=== PATIENT | male | born 1990 | race Caucasian/White ===

== ENCOUNTER 2018-02-10 21:14 | Emergency (ER) | payer BC, OTHER ==
[2018-02-10 21:18] VITALS: BP 142/87; PULSE 99; RESP 18; TEMP 97.7
[2018-02-10] MEDS ORDERED: ORPHENADRINE 30 MG/ML 2 ML VIAL IM STA (21:44)
[2018-02-10] MEDS ORDERED: KETOROLAC 30 MG/ML 1 ML VIAL IM STA (21:44)
--- NOTE | 2018-02-10 22:05 | ED ---
Back Pain HPI - General Chief Complaint: Back Pain/Injury Stated Complaint: back pain Time Seen by Provider: 02/10/18 21:37 Source: patient, RN notes reviewed Limitations: no limitations - History of Present Illness Initial Comments: This is a 27-year-old who presents to the emergency department with chief complaint of low back pain. Patient states that he was helping his mom clean out her basement earlier this afternoon. He states that his back started to feel irritated. He does report a history of degenerative disc disease. He states that he went home, took Flexeril at about 6:30 PM and could not sleep due to his low back pain. He denies any falls or specific injuries. He reports pain to the midline low back into the right side of his back. Denies any saddle paresthesias or loss of bladder or bowel function. He denies any numbness or tingling or shooting of pain down the legs. Denies recent fevers or chills, chest pain or shortness of breath, abdominal pain, nausea or vomiting. - Related Data Home Medications Medication Instructions Recorded Confirmed Cyanocobalamin [Vitamin B-12] 500 mcg PO DAILY 02/18/16 02/10/18 Cyclobenzaprine [Flexeril] 10 mg PO DAILY PRN 02/10/18 02/10/18 Dextroamphetamine/Amphetamine 20 mg PO BID 02/10/18 02/10/18 [Adderall] Previous Rx's Medication Instructions Recorded Ibuprofen 600 mg PO Q6HR #20 tablet 02/10/18 Allergies Allergy/AdvReac Type Severity Reaction Status Date / Time No Known Allergies Allergy Verified 02/10/18 21:27 Review of Systems ROS Statement: Those systems with pertinent positive or pertinent negative responses have been documented in the HPI. ROS Other: All systems not noted in ROS Statement are negative. Past Medical History Past Medical History: Chest Pain / Angina Additional Past Medical History / Comment(s): BACK PAIN History of Any Multi-Drug Resistant Organisms: None Reported Past Surgical History: No Surgical Hx Reported Additional Past Surgical History / Comment(s): colonoscopy, foreign body removal from foot Past Psychological History: No Psychological Hx Reported Smoking Status: Current every day smoker Past Alcohol Use History: Occasional Past Drug Use History: None Reported - Past Family History Father Family Medical History: COPD General Exam - General Exam Comments Initial Comments: General: Awake and alert, well-developed; in no apparent distress. HEENT: Head atraumatic, normocephalic. Pupils are equal, round and reactive to light. Extraocular movements intact. Oropharynx moist without erythema or exudate. Neck: Supple. Normal ROM. Cardiovascular: Regular rate and rhythm. No murmurs, rubs or gallops. Chest symmetrical. Respiratory: Lungs clear to auscultation bilaterally. No wheezes, rales or rhonchi. Normal respiratory effort with no use of accessory muscles. Musculoskeletal: Normal ROM, no tenderness bilateral upper and lower extremities. Skin: [place], warm and dry without rashes or lesions. Neurological: Alert and oriented x3. CN II-XII grossly intact. Speech is fluent and answers are appropriate. No focal neuro deficits. Psychiatric: Normal mood and affect. No overt signs of depression or anxiety noted. Limitations: no limitations Back exam: Present: normal inspection, full ROM, paraspinal tenderness (right lumbar), vertebral tenderness (lumbar) Course Vital Signs 02/10/18 21:16 Temperature 97.7 F Pulse Rate 99 Respiratory 18 Rate Blood Pressure 142/87 O2 Sat by Pulse 97 Oximetry Medical Decision Making - Medical Decision Making This is a 27-year-old male who presents to the emergency department with chief complaint of low back pain. Patient reports a history of degenerative disc disease. He states he was helping his mom clean out her basement earlier this afternoon and has since had progressive worsening of low back pain. There is tenderness of the lumbar vertebra and right lumbar paraspinal muscles. Patient denies any falls, specific injuries or trauma. He is neurovascularly intact. Denies saddle paresthesias or loss of bladder or bowel function. Denies abdominal pain. Patient given Toradol and Norflex while in the emergency department. Patient will be written a prescription for ibuprofen. Recommended continuing Flexeril. Recommended following up with primary care provider. Patient is in agreement with plan and voices understanding. All questions were answered. Vital signs are stable and patient is in no acute distress. Disposition Clinical Impression: Strain of lumbar region Disposition: HOME SELF-CARE Condition: Good Instructions: Acute Low Back Pain (ED), Low Back Strain (ED) Additional Instructions: Please take medications as prescribed. Please follow up with primary care provider within 1-2 days. Return to emergency department if symptoms should worsen or any concerns arise. Prescriptions: Ibuprofen 600 mg PO Q6HR #20 tablet Is patient prescribed a controlled substance at d/c from ED?: No Referrals: Raleigh Romano DO [Primary Care Provider] - 1-2 days Time of Disposition: 22:06
== END 2018-02-10 22:12 | disposition home or self-care (01) ==
LOC: EC 21:14
DX: S39.012A Strain of muscle, fascia and tendon of lower back, initial encounter (principal); F17.200 Nicotine dependence, unspecified, uncomplicated; Z79.899 Other long term (current) drug therapy; Z87.39 Personal history of other diseases of the musculoskeletal system and connective tissue; X50.9XXA Other and unspecified overexertion or strenuous movements or postures, initial encounter
CPT/HCPCS: 99283; 96372 ×2; J2360; J1885

== ENCOUNTER 2021-05-29 10:37 | Emergency (ER) | payer BC ==
[2021-05-29] MEDS ORDERED: BAMLANIVIMAB (EUA) 700 MG, ETESEVIMAB (EUA) 1,400 MG in SODIUM CHLORIDE 0.9% 50 ML IVPB ONE (11:15)
[2021-05-29] MEDS ORDERED: SODIUM CHLORIDE 0.9% 50 ML IVPB ONE (11:15)
--- NOTE | 2021-05-29 11:47 | ED ---
General Adult HPI - General Chief complaint: Upper Respiratory Infection Stated complaint: Covid+/BAM Time Seen by Provider: 05/29/21 11:40 Source: patient Mode of arrival: ambulatory Limitations: no limitations - History of Present Illness Initial comments: Well-appearing 31-year-old male presents to the emergency room with complaints of a runny nose and sore throat that started last night. Patient states that he went to urgent care and tested positive for coronavirus. He has not been vaccinated. He denies any chest pain, difficulty in breathing, shortness of breath. He has a history of ADHD and takes Adderall no other medications on a daily basis. No other medical history. He did provide a copy of his positive coronavirus test from the [facility] urgent care with him. -: days(s) (1) Severity scale (1-10): 0 Consistency: now resolved Improves with: none Worsens with: none Associated Symptoms: cough, other (sore throat, runny nose) - Related Data Home Medications Medication Instructions Recorded Confirmed Cyanocobalamin [Vitamin B-12] 500 mcg PO DAILY 02/18/16 02/10/18 Cyclobenzaprine [Flexeril] 10 mg PO DAILY PRN 02/10/18 02/10/18 Dextroamphetamine/Amphetamine 20 mg PO BID 02/10/18 02/10/18 [Adderall] Previous Rx's Medication Instructions Recorded Ibuprofen 600 mg PO Q6HR #20 tablet 02/10/18 Allergies Allergy/AdvReac Type Severity Reaction Status Date / Time No Known Allergies Allergy Verified 05/29/21 10:52 Review of Systems ROS Statement: Those systems with pertinent positive or pertinent negative responses have been documented in the HPI. ROS Other: All systems not noted in ROS Statement are negative. Past Medical History Past Medical History: Chest Pain / Angina Additional Past Medical History / Comment(s): BACK PAIN History of Any Multi-Drug Resistant Organisms: None Reported Past Surgical History: No Surgical Hx Reported Additional Past Surgical History / Comment(s): colonoscopy, foreign body removal from foot Past Psychological History: No Psychological Hx Reported Past Alcohol Use History: Occasional Past Drug Use History: None Reported - Past Family History Father Family Medical History: COPD General Exam Limitations: no limitations General appearance: alert, in no apparent distress Head exam: Present: atraumatic, normocephalic, normal inspection Eye exam: Present: normal appearance, EOMI ENT exam: Present: normal exam, normal oropharynx, mucous membranes moist Neck exam: Present: normal inspection, full ROM. Absent: tenderness, meningismus, lymphadenopathy Respiratory exam: Present: normal lung sounds bilaterally. Absent: respiratory distress, wheezes, rales, rhonchi, stridor Cardiovascular Exam: Present: regular rate, normal rhythm, normal heart sounds. Absent: systolic murmur, diastolic murmur, rubs, gallop, clicks GI/Abdominal exam: Present: soft, normal bowel sounds. Absent: distended, tenderness, guarding, rebound, rigid Back exam: Present: normal inspection. Absent: rash noted Neurological exam: Present: alert, oriented X3 Psychiatric exam: Present: normal affect, normal mood Skin exam: Present: warm, dry, intact, normal color. Absent: rash, cyanosis, diaphoretic, petechiae, pallor Course Vital Signs 05/29/21 05/29/21 05/29/21 10:47 12:16 13:33 Temperature 98.8 F 98.2 F Pulse Rate 94 79 75 Respiratory 19 20 18 Rate Blood Pressure 137/91 160/78 115/85 O2 Sat by Pulse 99 98 98 Oximetry Medical Decision Making - Medical Decision Making Well-appearing 31-year-old male presents to the emergency room with complaints of a runny nose and sore throat that started last night. Diagnosed at urgent care with coronavirus. He has not been vaccinated. His lung sounds are clear to auscultation his oxygen saturation is 99% room air. He has no respiratory distress, vital signs are stable. Patient was agreeable to receiving monoclonal antibody infusion and tolerated the infusion well. He was discharged home to return to the emergency room with any new or worsening symptoms. Self quarantine for 10 days from symptom onset, take vitamin D, vitamin C and zinc for immune health. Case discussed with Dr. Dover Disposition Clinical Impression: COVID-19 Disposition: HOME SELF-CARE Instructions (If sedation given, give patient instructions): Coronavirus Disease 2019 (COVID-19) Additional Instructions: Self quarantine for 10 days from symptom onset and 24 hours without a fever. Take vitamin C, vitamin D and zinc to improve immune health. Increase your fluid intake. Return to the emergency room with any new or worsening symptoms. Is patient prescribed a controlled substance at d/c from ED?: No Referrals: Raleigh Romano DO [Primary Care Provider] - 1-2 days
[2021-05-29 12:19] VITALS: TEMP 98.2
[2021-05-29 13:34] VITALS: BP 115/85; PULSE 75; RESP 18
== END 2021-05-29 13:34 | disposition home or self-care (01) ==
LOC: EC 10:37
DX: U07.1 COVID-19 (principal); Z72.89 Other problems related to lifestyle
CPT/HCPCS: 99283; J3490

== ENCOUNTER 2021-09-26 21:33 | Emergency (ER) | payer OTHER, BC ==
[2021-09-26 21:45] VITALS: TEMP 97.8
--- NOTE | 2021-09-26 22:11 | XR ---
EXAMINATION TYPE: XR scapula RT DATE OF EXAM: 09/26/2021 COMPARISON: NONE HISTORY: Pain TECHNIQUE: 2 views FINDINGS: There is no evidence of fracture nor dislocation. Glenohumeral joint is intact. Scapula is intact. IMPRESSION: Negative right scapula exam.
--- NOTE | 2021-09-26 22:14 | XR ---
EXAMINATION TYPE: XR shoulder complete RT DATE OF EXAM: 09/26/2021 COMPARISON: NONE HISTORY: Pain TECHNIQUE: 3 views FINDINGS: There is no sign of fracture nor dislocation. Joint spaces are normal. There are no patholo gic calcifications. IMPRESSION: Negative right shoulder exam.
[2021-09-27] MEDS ORDERED: IBUPROFEN 600 MG TAB PO STA (00:25)
[2021-09-27] MEDS ORDERED: ACETAMINOPHEN TAB 500 MG TAB PO STA (00:26)
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
[2021-09-27 01:04] VITALS: BP 122/76; PULSE 78; RESP 16
== END 2021-09-27 01:04 | disposition home or self-care (01) ==
LOC: EC 21:33
DX: S46.911A Strain of unspecified muscle, fascia and tendon at shoulder and upper arm level, right arm, initial encounter (principal); Y04.0XXA Assault by unarmed brawl or fight, initial encounter
CPT/HCPCS: 99283

== ENCOUNTER 2022-03-24 19:39 | Emergency (ER) | payer BC, OTHER ==
[2022-03-24 19:57] VITALS: BP 157/100; PULSE 85; RESP 18; TEMP 98.2
[2022-03-24] MEDS ORDERED: KETOROLAC 15 MG/ML 1 ML VIAL IVP STA (20:25)
[2022-03-24] MEDS ORDERED: SODIUM CHLORIDE 0.9% 1,000 ML IV ONE (20:26)
--- NOTE | 2022-03-24 20:30 | ED ---
Extremity Problem HPI - General Chief complaint: Extremity Problem,Nontraumatic Stated complaint: Leg Pain Time Seen by Provider: 03/24/22 20:13 Source: patient, RN notes reviewed Mode of arrival: ambulatory Limitations: no limitations - History of Present Illness Initial comments: This is a pleasant 32-year-old female who presents to emergency complaint 2 days of abdominal pain. Patient states it seemed to start more generalized yesterday and now is located in the right lower quadrant and left right flank area. Pain is exacerbated by movement, coughing, palpation, patient states it does radiate to the right CVA area. Patient had mild diarrhea yesterday. She also had some nausea. No fever. No hematuria. Patient's appetite has been diminished. No headache, no fever or chills, no changes in vision or hearing, no sore throat or difficulty with speech, no neck pain, no chest pain or shortness of breath, no changes in urination or bowel movements, no numbness or tingling, no extremity pain, no skin rashes or lesions. Past medical, surgical, social, and family history reviewed. MD Complaint: extremity pain - Related Data Home Medications Medication Instructions Recorded Confirmed Cyanocobalamin [Vitamin B-12] 500 mcg PO DAILY 02/18/16 02/10/18 Cyclobenzaprine [Flexeril] 10 mg PO DAILY PRN 02/10/18 02/10/18 Dextroamphetamine/Amphetamine 20 mg PO BID 02/10/18 02/10/18 [Adderall] Previous Rx's Medication Instructions Recorded Ibuprofen 600 mg PO Q6HR #20 tablet 02/10/18 Acetaminophen [Tylenol] 500 mg PO Q4-6H PRN #24 tab 09/27/21 Ibuprofen [Motrin] 600 mg PO Q8HR PRN #30 tab 09/27/21 Acetaminophen Tab [Tylenol Tab] 500 mg PO Q6H PRN #24 tablet 03/24/22 Cyclobenzaprine [Flexeril] 10 mg PO TID PRN #20 tab 03/24/22 Ibuprofen [Motrin] 600 mg PO Q8HR PRN #30 tab 03/24/22 Allergies Allergy/AdvReac Type Severity Reaction Status Date / Time No Known Allergies Allergy Verified 03/24/22 19:57 Review of Systems ROS Statement: Those systems with pertinent positive or pertinent negative responses have been documented in the HPI. ROS Other: All systems not noted in ROS Statement are negative. Past Medical History Past Medical History: Chest Pain / Angina Additional Past Medical History / Comment(s): BACK PAIN History of Any Multi-Drug Resistant Organisms: None Reported Past Surgical History: No Surgical Hx Reported Additional Past Surgical History / Comment(s): colonoscopy, foreign body removal from foot Past Psychological History: No Psychological Hx Reported Smoking Status: Never smoker Past Alcohol Use History: Occasional Past Drug Use History: None Reported - Past Family History Father Family Medical History: COPD General Exam Limitations: no limitations General appearance: alert, in no apparent distress Head exam: Present: atraumatic, normocephalic, normal inspection Eye exam: Present: normal appearance, PERRL, EOMI. Absent: scleral icterus, conjunctival injection, periorbital swelling ENT exam: Present: normal exam, mucous membranes moist Neck exam: Present: normal inspection. Absent: tenderness, meningismus, lymphadenopathy Respiratory exam: Present: normal lung sounds bilaterally. Absent: respiratory distress, wheezes, rales, rhonchi, stridor Cardiovascular Exam: Present: regular rate, normal rhythm, normal heart sounds. Absent: systolic murmur, diastolic murmur, rubs, gallop, clicks GI/Abdominal exam: Present: soft, normal bowel sounds. Absent: distended, tenderness, guarding, rebound, rigid Extremities exam: Present: normal inspection, full ROM, normal capillary refill, calf tenderness (Patient has mild tenderness to the left calf on deep palpation.), other (Full range of motion. Full muscle strength. No evidence of infectious or vascular insult. Pulses are 2+ in 4 regards to popliteal, dorsalis pedis, and posterior tibial. Capillary refill less than 2 seconds. No calor. No pallor. Sensation intact.). Absent: tenderness, pedal edema, joint swelling Back exam: Present: normal inspection, full ROM. Absent: tenderness, rash noted Neurological exam: Present: alert, oriented X3, CN II-XII intact, normal gait, reflexes normal, other (Patient may in fact have hyperesthesia with pinprick to the left calf area.). Absent: abnormal gait, motor sensory deficit Psychiatric exam: Present: normal affect, normal mood Skin exam: Present: warm, dry, intact, normal color. Absent: rash Course Vital Signs 03/24/22 19:52 Temperature 98.2 F Pulse Rate 85 Respiratory 18 Rate Blood Pressure 157/100 O2 Sat by Pulse 99 Oximetry - Reevaluation(s) Reevaluation #1: 03/24/22 22:36 Medical record is reviewed Symptoms are improved here in the emergency department Patient is informed of results and questions answered Patient in no distress Medical Decision Making - Medical Decision Making Patient's pain most consistent with neuropathic pain. Does not appear to be consistent with infectious or vascular etiology. Patient's pulses are normal. Range of motion all. Strength normal. No rash or lesion. Gen. workup ordered. I suspect the patient had a vasovagal episode due to the pain. Patient states that he felt lightheaded and passed out right after the pain. Denying any shortness of breath or chest pain. Patient reevaluated prior to discharge. Neurovascular intact., Reevaluation, patient has pain when he stands. Patient is able to do toe raises. Calderon's test is normal. Suspect the patient actually has a calf strain, possible soleus strain. We'll treat conservatively with RICE therapy. Patient given follow-up with orthopedics. Work note given. Patient was told to return to the ER for any signs or symptoms worsen. Told to return immediately if any other problems arise. All questions answered. Treatment plan discussed. Patient in agreement Every effort has been made to ensure accuracy of this dictation. However, due to the limitations of electronic medical records and dictation devices, errors in charting still occur. The case was discussed in detail with ED attending physician. Presentation, findings, treatment plan discussed in detail. Proviso Dr. Ortiz - Lab Data Result diagrams: 03/24/22 20:37 03/24/22 20:37 Lab Results 03/24/22 03/24/22 03/24/22 Range/Units 20:37 20:37 20:37 WBC 8.9 (3.8-10.6) k/uL RBC 5.36 (4.30-5.90) m/uL Hgb 16.2 (13.0-17.5) gm/dL Hct 47.0 (39.0-53.0) % MCV 87.7 (80.0-100.0) fL MCH 30.3 (25.0-35.0) pg MCHC 34.5 (31.0-37.0) g/dL RDW 13.2 (11.5-15.5) % Plt Count 233 (150-450) k/uL MPV 7.9 Neutrophils % 55 % Lymphocytes % 33 % Monocytes % 7 % Eosinophils % 2 % Basophils % 1 % Neutrophils # 4.9 (1.3-7.7) k/uL Lymphocytes # 2.9 (1.0-4.8) k/uL Monocytes # 0.6 (0-1.0) k/uL Eosinophils # 0.2 (0-0.7) k/uL Basophils # 0.1 (0-0.2) k/uL Sodium 136 L (137-145) mmol/L Potassium 4.5 (3.5-5.1) mmol/L Chloride 100 (98-107) mmol/L Carbon Dioxide 24 (22-30) mmol/L Anion Gap 12 mmol/L BUN 16 (9-20) mg/dL Creatinine 0.81 (0.66-1.25) mg/dL Est GFR (CKD-EPI)AfAm >90 (>60 ml/min/1.73 sqM) Est GFR (CKD-EPI)NonAf >90 (>60 ml/min/1.73 sqM) Glucose 98 (74-99) mg/dL Calcium 9.3 (8.4-10.2) mg/dL Magnesium 1.9 (1.6-2.3) mg/dL Total Bilirubin 0.4 (0.2-1.3) mg/dL AST 30 (17-59) U/L ALT 17 (4-49) U/L Alkaline Phosphatase 66 (38-126) U/L Troponin I <0.012 (0.000-0.034) ng/mL Total Protein 7.2 (6.3-8.2) g/dL Albumin 4.3 (3.5-5.0) g/dL - EKG Data EKG Comments: EKG done at 2034 and read by the attending physician reveals Q wave noted in lead 3 and 2. No evidence of acute findings. Normal intervals. No acute pathology otherwise. Normal axis. - Radiology Data Radiology results: report reviewed, image reviewed Disposition Clinical Impression: Strain of left calf muscle, Vasovagal syncope, Elevated blood pressure reading Disposition: HOME SELF-CARE Condition: Stable Instructions (If sedation given, give patient instructions): Muscle Strain (ED), Syncope (ED), Hypertension (ED) Additional Instructions: Elevate your leg as much as possible. Apply ice 20 minutes on and off for times per day. Follow-up with the orthopedic doctor as instructed. Follow-up with your regular physician as directed. Return to the ER immediately if any symptoms worsen, new symptoms arise, or any other problems develop. Your blood pressure is elevated. Follow-up with your regular physician regarding this. Is patient prescribed a controlled substance at d/c from ED?: No Referrals: Raleigh Romano DO [Primary Care Provider] - 1-2 days Jared Duggan MD [STAFF PHYSICIAN] - 1-2 days Time of Disposition: 23:04
[2022-03-24 20:55] LABS: Basophils # (A) 0.1 k/uL (0-0.2); Basophils % (A) 1 %; Eosinophils # (A) 0.2 k/uL (0-0.7); Eosinophils % (A) 2 %; HGB 16.2 gm/dL (13.0-17.5); Lymphocytes # (A) 2.9 k/uL (1.0-4.8); Lymphocytes % (A) 33 %; MCH 30.3 pg (25.0-35.0); MCHC 34.5 g/dL (31.0-37.0); MCV 87.7 fL (80.0-100.0); Mean Platelet Volume 7.9; Monocytes # (A) 0.6 k/uL (0-1.0); Monocytes % (A) 7 %; Neutrophils # (A) 4.9 k/uL (1.3-7.7); Neutrophils % (A) 55 %; Platelet Count 233 k/uL (150-450); RBC 5.36 m/uL (4.30-5.90); RDW 13.2 % (11.5-15.5); WBC 8.9 k/uL (3.8-10.6)
[2022-03-24 21:05] LABS: ALT 17 U/L (4-49); AST 30 U/L (17-59); African American GFR (CKD) >90 (>60 ml/min/1.73 sqM); Albumin 4.3 g/dL (3.5-5.0); Alkaline Phosphatase 66 U/L (38-126); Anion Gap 12 mmol/L; Blood Urea Nitrogen 16 mg/dL (9-20); Calcium 9.3 mg/dL (8.4-10.2); Carbon Dioxide 24 mmol/L (22-30); Chloride 100 mmol/L (98-107); Glucose 98 mg/dL (74-99); Magnesium 1.9 mg/dL (1.6-2.3); Non-African American GFR(CKD) >90 (>60 ml/min/1.73 sqM); Potassium 4.5 mmol/L (3.5-5.1); Sodium 136 mmol/L (137-145); Total Bilirubin 0.4 mg/dL (0.2-1.3); Total Protein 7.2 g/dL (6.3-8.2)
--- NOTE | 2022-03-24 21:30 | US ---
EXAMINATION TYPE: US venous doppler duplex LE LT DATE OF EXAM: 03/24/2022 9:22 PM COMPARISON: NONE CLINICAL HISTORY: Left leg pain. Pt states left calf pain, no known prior DVT SIDE PERFORMED: Left TECHNIQUE: The lower extremity deep venous system is examined utilizing real time linear array sonog wen with graded compression, doppler sonography and color-flow sonography. VESSELS IMAGED: Common Femoral Vein Deep Femoral Vein Greater Saphenous Vein * Femoral Vein Popliteal Vein Small Saphenous Vein * Proximal Calf Veins (* superficial vessels) Left Leg: Negative for DVT IMPRESSION: No evidence for deep vein thrombosis of the left lower extremity.
--- NOTE | 2022-03-24 21:45 | XR ---
EXAMINATION TYPE: XR chest 1V portable DATE OF EXAM: 03/24/2022 9:39 PM COMPARISON: Rib series 12/22/2015 TECHNIQUE: XR chest 1V portable . CLINICAL INDICATION:Male, 31 years old with history of syncope; FINDINGS: Lungs/Pleura: There is no evidence of pleural effusion, focal consolidation, or pneumothorax. Pulmonary vascularity: Unremarkable. Heart/mediastinum: Cardiomediastinal silhouette is unremarkable. Musculoskeletal: No acute osseous pathology. IMPRESSION: No acute cardiopulmonary disease/process.
[2022-03-24] MEDS ORDERED: CYCLOBENZAPRINE 10MG STARTER 3 TAB BTL PO STA (23:05)
[2022-03-24] MEDS ORDERED: ACET/COD 300 MG/30 MG STARTER PACK 6 TAB BTL PO STA (23:05)
== END 2022-03-24 23:16 | disposition home or self-care (01) ==
LOC: EC 19:39
DX: S86.112A Strain of other muscle(s) and tendon(s) of posterior muscle group at lower leg level, left leg, initial encounter (principal); R55 Syncope and collapse; R03.0 Elevated blood-pressure reading, without diagnosis of hypertension; X58.XXXA Exposure to other specified factors, initial encounter
CPT/HCPCS: 99285; 36415; 93005; 80053; 83735; 84484; 85025; 71045; 93971; 96374; J1885

== ENCOUNTER 2022-09-22 23:26 | Emergency (ER) | payer OTHER ==
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
[2022-09-23 00:10] VITALS: BP 155/96; PULSE 80; RESP 16; TEMP 98.4
[2022-09-23 10:17] LABS: Hepatitis B Surface Antibody Reactive (Nonreactive)
[2022-09-23 10:18] LABS: Hepatitis C IgG Antibody Nonreactive (Nonreactive)
[2022-09-23 14:06] LABS: HIV 2 AB Non-Reactive (Non-Reactive); HIV AB P24 Non-Reactive (Non-Reactive); HIV P24 AG Non-Reactive (Non-Reactive)
== END 2022-09-23 00:14 | disposition home or self-care (01) ==
LOC: EC 23:26
DX: Z77.21 Contact with and (suspected) exposure to potentially hazardous body fluids (principal)
CPT/HCPCS: 36415; 86706; 86803; 87390; 99283

== ENCOUNTER → 2022-12-24 | Outpatient (CLI) | payer OTHER ==
[2022-12-24 16:21] LABS: Basophils % (A) 1.5 %; Eosinophils # (A) 0.13 X 10*3/uL (0.04-0.35); HCT 48.6 % (39.6-50.0); HGB 16.2 d/dL (12.0-15.0); Lymphocytes # (A) 2.32 X 10*3/uL (0.90-5.00); Lymphocytes % (A) 35.7 %; MCH 29.6 pg (27.0-32.0); MCHC 33.3 d/dL (32.0-37.0); MCV 88.8 FL (80.0-97.0); Mean Platelet Volume 10.9 FL (9.5-12.2); Monocytes # (A) 0.47 X 10*3/uL (0.20-1.00); Monocytes % (A) 7.2 %; NRBC Per 100 WBC 0 X 10*3/uL (0.00-0.01); Neutrophils # (A) 3.46 X 10*3/uL (1.80-7.70); Neutrophils % (A) 53.4 %; Platelet Count 239 X 10*3/uL (140-440); RBC 5.47 X 10*6/uL (4.40-5.60); RDW 13.2 % (11.5-14.5); WBC 6.49 X 10*3/uL (4.50-10.00)
[2022-12-24 20:22] LABS: BUN/Creat Ratio 15.25 Ratio (12.00-20.00); Blood Urea Nitrogen 12.2 mg/dL (9.0-27.0); C-Peptide 2.72 ng/mL (0.81-3.85); Chloride 102 mmol/L (96-109); Glucose 86 mg/dL (70-110); LDL Cholesterol,Calculated 108.4 mg/dL (0.0-131.0); Potassium 4.3 mmol/L (3.5-5.5); Sodium 137 mmol/L (135-145); VLDL Calculation 16.72 mg/dL (5.00-40.00)
[2022-12-24 20:23] LABS: ALT 21 U/L (10-49); AST 24 U/L (14-35); Albumin 4.3 d/dL (3.8-4.9); Albumin/Globulin Ratio 1.54 Ratio (1.60-3.17); Alkaline Phosphatase 73 U/L (41-126); Calcium 9.1 mg/dL (8.7-10.3); Carbon Dioxide 22.8 mmol/L (21.6-31.8); Globulin 2.8 d/dL (1.6-3.3); Total Bilirubin 0.4 mg/dL (0.3-1.2); Total Protein 7.1 d/dL (6.2-8.2)
== END | disposition home or self-care (01) ==
LOC: LABWHC1 11:36
PROVIDERS: ATTEND Family Medicine
DX: Z00.00 Encounter for general adult medical examination without abnormal findings (principal)
CPT/HCPCS: 36415; 80053; 80061; 83036; 84443; 84681; 85025

== ENCOUNTER 2024-11-21 17:18 | Emergency (ER) | payer OTHER ==
[2024-11-21 17:23] VITALS: TEMP 97.5
[2024-11-21] MEDS: MORPHINE SULFATE 4 MG/ML SYRINGE IVP STA (18:22)
[2024-11-21] MEDS: KETOROLAC 15 MG/ML 1 ML VIAL IVP STA (18:22)
--- NOTE | 2024-11-21 18:26 | XR ---
EXAMINATION TYPE: XR finger LT DATE OF EXAM: 11/21/2024 6:22 PM COMPARISON: None CLINICAL INDICATION: Male, 34 years old with history of Ring finger vs pipe buffer; PHH, pain TECHNIQUE: XR finger LT 3 views were obtained. FINDINGS: Normal alignment of the visualized joints. No acute osseous pathology is identified. No e vidence of soft tissue swelling. No significant degeneration. No radiopaque foreign bodies. IMPRESSION: No acute osseous pathology. No radiopaque foreign bodies. [facility], , 11/21/2024 6:24 PM
[2024-11-21] MEDS: ACETAMINOPHEN TAB 500 MG TAB PO STA (18:30)
[2024-11-21] MEDS: CEPHALEXIN 500 MG CAP PO STA (18:32)
[2024-11-21] MEDS: MORPHINE SULFATE 4 MG/ML SYRINGE IM STA (18:33)
[2024-11-21] MEDS: KETOROLAC 15 MG/ML 1 ML VIAL IM STA (18:33)
[2024-11-21] MEDS: LIDOCAINE 1% INJ 10MG/ML (20 ML MDV) SQ ONE (18:50)
--- NOTE | 2024-11-21 19:13 | ED ---
Wound/Laceration HPI - General Chief Complaint: Wound/Laceration Stated Complaint: Cut on left ring finger Time Seen by Provider: 11/21/24 17:32 Source: patient, RN notes reviewed Mode of arrival: ambulatory Limitations: no limitations - History of Present Illness Initial Comments: This is a 34-year-old male presenting for left finger injury occurring at 1720 today. 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 Patient states tetanus vaccination is up-to-date. Denies use of blood thinners. Denies any other significant injury at this time. Onset/Timin -: minutes(s) Time: 17:20 Extremity Location: Left: Hand Place: home Patient Tetanus UTD: Yes Context: accidental Associated Symptoms: pain - Related Data Home Medications Medication Instructions Recorded Confirmed Cyanocobalamin [Vitamin B-12] 500 mcg PO DAILY 02/18/16 02/10/18 Cyclobenzaprine [Flexeril] 10 mg PO DAILY PRN 02/10/18 02/10/18 Dextroamphetamine/Amphetamine 20 mg PO BID 02/10/18 02/10/18 [Adderall] Previous Rx's Medication Instructions Recorded Ibuprofen 600 mg PO Q6HR #20 tablet 02/10/18 Acetaminophen [Tylenol] 500 mg PO Q4-6H PRN #24 tab 09/27/21 Ibuprofen [Motrin] 600 mg PO Q8HR PRN #30 tab 09/27/21 Acetaminophen Tab [Tylenol Tab] 500 mg PO Q6H PRN #24 tablet 03/24/22 Cyclobenzaprine [Flexeril] 10 mg PO TID PRN #20 tab 03/24/22 Ibuprofen [Motrin] 600 mg PO Q8HR PRN #30 tab 03/24/22 Cephalexin [Keflex] 500 mg PO Q6HR 1 Days #20 cap 11/21/24 Allergies Allergy/AdvReac Type Severity Reaction Status Date / Time No Known Allergies Allergy Verified 11/21/24 17:23 Review of Systems ROS Statement: Those systems with pertinent positive or pertinent negative responses have been documented in the HPI. ROS Other: All systems not noted in ROS Statement are negative. Past Medical History Past Medical History: Chest Pain / Angina Additional Past Medical History / Comment(s): BACK PAIN History of Any Multi-Drug Resistant Organisms: None Reported Past Surgical History: No Surgical Hx Reported Additional Past Surgical History / Comment(s): colonoscopy, foreign body removal from foot Past Psychological History: No Psychological Hx Reported Smoking Status: Never smoker Past Alcohol Use History: Occasional Past Drug Use History: None Reported - Past Family History Father Family Medical History: COPD General Exam Limitations: no limitations General appearance: alert, in no apparent distress Head exam: Present: atraumatic, normocephalic, normal inspection Eye exam: Present: normal appearance, PERRL, EOMI. Absent: scleral icterus, conjunctival injection, periorbital swelling ENT exam: Present: normal exam, mucous membranes moist Neck exam: Present: normal inspection. Absent: tenderness, meningismus, lymphadenopathy Respiratory exam: Present: normal lung sounds bilaterally. Absent: respiratory distress, wheezes, rales, rhonchi, stridor Cardiovascular Exam: Present: regular rate, normal rhythm, normal heart sounds. Absent: systolic murmur, diastolic murmur, rubs, gallop, clicks GI/Abdominal exam: Present: soft, normal bowel sounds. Absent: distended, tenderness, guarding, rebound, rigid Extremities exam: Present: full ROM, tenderness, normal capillary refill, other (1.5 cm circular/crescent shaped laceration across distal aspect of left ring finger nail with damage to nail. 2 cm shallow vertical laceration noted on left ventral wrist without bleeding or foreign body). Absent: pedal edema, joint swelling, calf tenderness Back exam: Present: normal inspection Neurological exam: Present: alert, oriented X3, CN II-XII intact Psychiatric exam: Present: normal affect, normal mood Skin exam: Present: warm, dry, intact, normal color. Absent: rash Course Vital Signs 11/21/24 11/21/24 17:20 19:51 Temperature 97.5 F L Pulse Rate 102 H 81 Respiratory 20 16 Rate Blood Pressure 138/98 143/92 O2 Sat by Pulse 99 98 Oximetry Procedures - Nerve Block Consent Obtained: verbal consent Local Anesthetic Used: Lidocaine 1% Amount of anesthesia used: 3 Side: left Nerve Blocks: digital Procedure Successful: Yes Complications: none Patient Tolerated Procedure: well, no complications Medical Decision Making - Medical Decision Making Was pt. sent in by a medical professional or institution (, PA, GLOBAL MARKETING SPECIALIST, urgent care, hospital, or usp...) When possible be specific @ -No Did you speak to anyone other than the patient for history (EMS, parent, family, police, friend...)? What history was obtained from this source @ -No Did you review nursing and triage notes (agree or disagree)? Why? @ -I reviewed and agree with nursing and triage notes Were old charts reviewed (outside hosp., previous admission, EMS record, old EKG, old radiological studies, urgent care reports/EKG's, usp records)? Report findings @ -No old charts were reviewed Differential Diagnosis (chest pain, altered mental status, abdominal pain women, abdominal pain men, vaginal bleeding, weakness, fever, dyspnea, syncope, headache, dizziness, GI bleed, back pain, seizure, CVA, palpatations, mental health, musculoskeletal)? @ -Differential Musculoskeletal Muscular strain, contusion, ligament sprain, fracture, arthritis, septic arthritis, bursitis, cellulitis, muscle spasm, nerve compression, DVT, arterial occlusion, herpes zoster, electrolyte abnormality, tumor.... This is not meant to be in all inclusive list EKG interpreted by me (3pts min.). @ -Not done X-rays interpreted by me (1pt min.). @ - Finger x-ray shows no acute fracture or radiopaque foreign body. CT interpreted by me (1pt min.). @ -None done U/S interpreted by me (1pt. min.). @ -None done What testing was considered but not performed or refused? (CT, X-rays, U/S, labs)? Why? @ -None What meds were considered but not given or refused? Why? @ -None Did you discuss the management of the patient with other professionals (professionals i.e. , PA, GLOBAL MARKETING SPECIALIST, lab, RT, psych nurse, social media director, backend tester, teacher, biological technical officer, field case manager)? Give summary @ -No Was smoking cessation discussed for >3mins.? @ -No Was critical care preformed (if so, how long)? @ -No Were there social determinants of health that impacted care today? How? (Homelessness, low income, unemployed, alcoholism, drug addiction, transportation, low edu. Level, literacy, decrease access to med. care, retirement, rehab)? @ -No Was there de-escalation of care discussed even if they declined (Discuss DNR or withdrawal of care, Hospice)? DNR status @ -No What co-morbidities impacted this encounter? (DM, HTN, Smoking, COPD, CAD, Cancer, CVA, ARF, Chemo, Hep., AIDS, mental health diagnosis, sleep apnea, morbid obesity)? @ -None Was patient admitted / discharged? Hospital course, mention meds given and route, prescriptions, significant lab abnormalities, going to OR and other pertinent info. @ -Patient initially provided IM morphine and Toradol as well as p.o. Tylenol for pain. Finger x-ray shows no acute fracture or radiopaque foreign body. Digital nerve block performed. P.o. provided p.o. Keflex with remaining prophylactic Keflex regimen sent to patient's pharmacy. Laceration cleaned copiously and adhered with Dermabond glue. Tetanus vaccination up-to-date. Discussed patient with Dr. Orona. Undiagnosed new problem with uncertain prognosis? @ -No Drug Therapy requiring intensive monitoring for toxicity (Heparin, Nitro, Insulin, Cardizem)? @ -No Were any procedures done? @ -Laceration cleaned copiously with antibacterial soap and water as well as saline irrigation. Adhered with Dermabond glue. Diagnosis/symptom? @ -Finger laceration Acute, or Chronic, or Acute on Chronic? @ -Acute Uncomplicated (without systemic symptoms) or Complicated (systemic symptoms)? @ -Uncomplicated Side effects of treatment? @ -No Exacerbation, Progression, or Severe Exacerbation? @ -No Poses a threat to life or bodily function? How? (Chest pain, USA, VT, pneumonia, PE, COPD, DKA, ARF, appy, cholecystitis, CVA, Diverticulitis, Homicidal, Suicidal, threat to staff... and all critical care pts) @ -No Disposition Clinical Impression: Laceration Disposition: HOME SELF-CARE Condition: Fair Instructions (If sedation given, give patient instructions): Skin Adhesive Care (ED) Additional Instructions: Allow the adhesive to remain in place for up to 7 days if possible. Alternate Tylenol/Motrin every 4 hours for pain. Prescriptions: Cephalexin [Keflex] 500 mg PO Q6HR 1 Days #20 cap Is patient prescribed a controlled substance at d/c from ED?: No Referrals: Daniel Holloway MD [Primary Care Provider] - 1-2 days Time of Disposition: 19:13
[2024-11-21] MEDS: TOPICAL SKIN ADHESIVE 1 EACH AMP TOPICAL ONE (19:26)
[2024-11-21 20:11] VITALS: BP 143/92; PULSE 81; RESP 16
== END 2024-11-21 19:51 | disposition home or self-care (01) ==
LOC: EC 17:18
DX: S61.215A Laceration without foreign body of left ring finger without damage to nail, initial encounter (principal); W26.8XXA Contact with other sharp object(s), not elsewhere classified, initial encounter; Y92.009 Unspecified place in unspecified non-institutional (private) residence as the place of occurrence of the external cause
CPT/HCPCS: 73140; 64450; 99283; 96372 ×2; J2270; J2003; J1885